=== PATIENT | female | born 1990 | race Caucasian/White ===

== ENCOUNTER 2016-12-01 15:52 | Emergency (ER) | payer OTHER ==
[2016-12-01 16:41] VITALS: BP 144/88
--- NOTE | 2016-12-01 20:58 | UC ---
Swati Kat Erika, scribed for Adwoa Hall DO on 12/01/16 at 1717 . Respiratory Complaint HPI - HPI Summary HPI Summary: Patient is a 26-year-old female presenting to [facility] with a CC of a "raspiness" in her left anterior and left lateral chest for the past few days. She feels the symptoms when breathing. Patient reports she initially had a sore throat a few days ago, but this resolved. Patient states she has a slight dry cough. She denies chest pain and SOB. Patient denies all other symptoms including fever, chills, diaphoresis, headache, sinus congestion, nasal drainage, nausea, vomiting, abdominal pain, urinary symptoms, rashes, myalgias, and arthralgias. Patient denies PMHx. FHx HTN. Patient reports that she has smoked about 8 years out of the past 14 years, at most 1 PPD and usually 10 cigarettes/day. She recently decreased to 2 cigarettes/day and is trying to quit. - History of Current Complaint Chief Complaint: UCRespiratory Stated Complaint: CONGESTION Time Seen by Provider: 12/01/16 17:00 Hx Obtained From: Patient Hx Last Menstrual Period: ON DEPOPROVERA (LMP 09/2016) ?: No Onset/Duration: Gradual Onset, Lasting Days, Still Present Timing: Constant Severity Initially: Mild Severity Currently: Mild Pain Intensity: 0 Pain Scale Used: 0-10 Numeric Aggravating Factors: Deep Breaths Alleviating Factors: Nothing Associated Signs And Symptoms: Negative: Dyspnea, Fever, Chills, Nasal Congestion, Sinus Discomfort - Allergies/Home Medications Allergies/Adverse Reactions: Allergies Allergy/AdvReac Type Severity Reaction Status Date / Time Hydrocodone [From Vicodin] AdvReac Nausea Verified 12/01/16 16:41 PMH/Surg Hx/FS Hx/Imm Hx Previously Healthy: Yes Endocrine History Of: Denies: Diabetes, Thyroid Disease Cardiovascular History Of: Denies: Cardiac Disorders Respiratory History Of: Denies: Asthma - Surgical History Surgical History: None - Family History Known Family History: Positive: Hypertension - Social History Occupation: Employed Full-time Lives: With Family Alcohol Use: Occasionally Substance Use Type: None Smoking Status (MU): Current Every Day Smoker Type: Cigarettes Amount Used/How Often: 2 CIG/DAY Length of Time of Smoking/Using Tobacco: 8 out of the past 14 years Have You Smoked in the Last Year: Yes Cessation Counseling: Counseled 3+Min - 10 Min Review of Systems Constitutional: Negative Skin: Negative Eyes: Negative ENT: Sore Throat - resolved Respiratory: Other - "raspiness" in chest Cardiovascular: Negative Gastrointestinal: Negative Genitourinary: Negative Motor: Negative Neurovascular: Negative Musculoskeletal: Negative Neurological: Negative Psychological: Negative All Other Systems Reviewed And Are Negative: Yes Physical Exam Triage Information Reviewed: Yes Appearance: Well-Appearing, No Pain Distress, Well-Nourished Vital Signs: Initial Vital Signs Temp 97.6 F 12/01/16 16:37 Pulse 73 12/01/16 16:37 Resp 16 12/01/16 16:37 BP 144/88 12/01/16 16:37 Pulse Ox 98 12/01/16 16:37 Vital Signs Reviewed: Yes Eyes: Positive: Conjunctiva Clear. Negative: Discharge ENT: Positive: Hearing grossly normal. Negative: Muffled/hoarse voice Neck: Positive: Supple, Nontender Respiratory: Positive: Lungs clear, Normal breath sounds, No respiratory distress, No accessory muscle use Cardiovascular: Positive: RRR, No Murmur Musculoskeletal Exam: Normal Neurological: Positive: Alert, Muscle Tone Normal Psychological Exam: Normal Psychological: Positive: Age Appropriate Behavior Skin Exam: Other - warm, dry, normal color UC Diagnostic Evaluation - Laboratory O2 Sat by Pulse Oximetry: 98 Respiratory Course/Dx - Differential Dx/Diagnosis Differential Diagnosis/HQI/PQRI: Bronchitis, Lower Resp Infection, Sinusitis, Other - uri, dental infecton Provider Diagnoses: Cough Discharge - Discharge Plan Condition: Stable Disposition: HOME Prescriptions: guaiFENesin ER TAB [Mucinex*] 600 mg PO BID PRN #1 box PRN Reason: Cough Patient Education Materials: Acute Cough (ED) Referrals: Matilde Zavaleta MD [Primary Care Provider] - (FOLLOW UP IN 1-2 WEEKS. FOLLOW UP SOONER IF SYMPTOMS WORSEN OR NEW SYMPTOMS DEVELOP.) The documentation as recorded by the Swati de la cruz Erika accurately reflects the service I personally performed and the decisions made by Isabel freedman Michelle A, DO.
== END 2016-12-01 17:42 | disposition home or self-care (01) ==
LOC: UCEAST 15:52
DX: R05 Cough (principal); F17.210 Nicotine dependence, cigarettes, uncomplicated; Z88.5 Allergy status to narcotic agent
CPT/HCPCS: 99212; G0463

== ENCOUNTER 2023-02-21 10:32 | Inpatient (IN) ==
[2023-02-21] MEDS ORDERED: miSOPROStol 100 mcg TAB PO ONE ×4 (11:11→23:05)
[2023-02-21] MEDS ORDERED: Lactated Ringers 1000 ml BAG 1,000 ML IV ONE (11:11)
[2023-02-21] MEDS ORDERED: Buffered Lidocaine 1% SYRIN 1 ml INTRADERM ONE (11:11)
[2023-02-21] MEDS ORDERED: Nalbuphine 10 MG/ML 1 ML VIAL IV PRN (11:11)
[2023-02-21] MEDS ORDERED: Promethazine INJ(RESTRICTED) 25 MG/ML 1 ml VIAL IV PRN (11:11)
[2023-02-21 11:56] LABS: ABS Lymphocytes 1.2 10^3/uL (1.0-4.8); ABS Monocytes 0.3 10^3/uL (0.0-0.9); ABS Neutrophils 4.3 10^3/uL (1.5-7.6); Eosinophil % 0.6 %; Lymphocyte % 20.5 %; Mean Corpuscular Hemoglobin 28.6 pg (27-33); Mean Corpuscular Hgb Conc 34.3 g/dL (31-36); Mean Corpuscular Volume 83.2 fL (80-97); Mean Platelet Volume 8.7 fL (7.5-11.2); Platelet Count 145 10^3/uL (150-450); Red Blood Count 3.49 10^6/uL (3.63-4.92); Red Cell Distribution Width 15.1 % (12-17); White Blood Count 5.9 10^3/uL (3.8-11.8)
[2023-02-21] MEDS ORDERED: Lactated Ringers 1000 ml BAG 1,000 ML IV SCH (12:00)
[2023-02-21 12:22] LABS: Albumin 3.3 g/dL (3.2-5.2); Albumin/Globulin Ratio 1.5 (1-3); Calcium 8.4 mg/dL (8.6-10.3); Creatinine, Serum 0.47 mg/dL (0.51-0.95); Globulin 2.2 g/dL (2-4); Potassium 3.5 mmol/L (3.5-5.0); Total Bilirubin 0.3 mg/dL (0.2-1.0); Total Protein 5.5 g/dL (6.4-8.9); Uric Acid 4.2 mg/dL (2.3-6.6); eGFR CKD-EPI 127.2 (>60)
[2023-02-21 12:32] LABS: Urine Benzodiazepine Screen None Detected (None Detect); Urine Cannabinoids Screen None Detected (None Detect); Urine Opiates Screen None Detected (None Detect)
[2023-02-21] MEDS ORDERED: Insulin NPH 100 units/ml SUBCUT SCH (21:00)
[2023-02-22] MEDS ORDERED: miSOPROStol 100 mcg TAB PO ONE ×2 (07:42→12:34)
[2023-02-22 14:40] LABS: ABS Eosinophils 0.1 10^3/uL (0.0-0.5); ABS Lymphocytes 1.2 10^3/uL (1.0-4.8); ABS Monocytes 0.5 10^3/uL (0.0-0.9); ABS Neutrophils 5.5 10^3/uL (1.5-7.6); ABS Nucleated RBC 0.01 10^3/ul; Eosinophil % 0.8 %; Hematocrit 32.5 % (35-45); Hemoglobin 11.2 g/dL (11.5-14.3); Lymphocyte % 16.3 %; Mean Corpuscular Hemoglobin 28.2 pg (27-33); Mean Corpuscular Hgb Conc 34.4 g/dL (31-36); Mean Corpuscular Volume 81.9 fL (80-97); Nucleated Red Blood Cells % 0.1 /100 WBC (0.0-0.4); Platelet Count 155 10^3/uL (150-450); Red Blood Count 3.97 10^6/uL (3.63-4.92); Red Cell Distribution Width 15.5 % (12-17); White Blood Count 7.3 10^3/uL (3.8-11.8)
[2023-02-22] MEDS ORDERED: OBEPIDURAL (200 ML) 200 ML EPIDURAL ONE (15:41)
[2023-02-22] MEDS ORDERED: Bupivacaine 0.25% SDV PF 10 ML VIAL INJ ONE (15:48)
[2023-02-22 15:51] LABS: Albumin 3.4 g/dL (3.2-5.2); Albumin/Globulin Ratio 1.3 (1-3); Calcium 9.2 mg/dL (8.6-10.3); Creatinine, Serum 0.5 mg/dL (0.51-0.95); Globulin 2.6 g/dL (2-4); Potassium 3.6 mmol/L (3.5-5.0); Total Bilirubin 0.3 mg/dL (0.2-1.0); eGFR CKD-EPI 125.4 (>60)
[2023-02-22] MEDS ORDERED: Phenylephrine 40 mcg/mL 10mL (400mcg) SYRINGE IV PUSH PRN ×2 (16:19)
[2023-02-22] MEDS ORDERED: Lactated Ringers 1000 ml BAG 1,000 ML IV ONE (16:19)
[2023-02-22] MEDS ORDERED: Lactated Ringers 1000 ml BAG 1,000 ML IV SCH ×2 (17:00→18:00)
[2023-02-22] MEDS ORDERED: OBEPIDURAL (200 ML) 200 ML EPIDURAL SCH (17:00)
[2023-02-22] MEDS ORDERED: Oxytocin in LR 20,000 MILLI.UNIT/1,000 ML BAG IV SCH ×2 (17:15→18:00)
[2023-02-22] MEDS ORDERED: Glycerin ADULT 2.4 gm SUPP PR PRN (17:56)
[2023-02-22] MEDS ORDERED: Witch Hazel PAD JAR TOPICAL PRN (17:56)
[2023-02-22] MEDS ORDERED: Dibucaine 1% OINT 28.35 GM TUBE PR PRN (17:56)
[2023-02-22 18:03] LABS: Urine Appearance Clear; Urine Bilirubin Negative (Negative); Urine Blood Negative (Negative); Urine Color Yellow; Urine Glucose Negative (Negative); Urine Ketones Negative (Negative); Urine Nitrite Negative (Negative); Urine Protein Negative (Negative); Urine Specific Gravity 1.018 (1.002-1.030); Urine Urobilinogen Negative (Negative)
[2023-02-22 18:05] LABS: Urine Bacteria Absent (Absent); Urine Red Blood Cell 1+(3-5/hpf) (Absent); Urine Squamous Epithelial Cell Present (Absent); Urine White Blood Cell Trace(0-5/hpf) (Absent)
[2023-02-23 07:32] LABS: ABS Basophils 0.1 10^3/uL (0.0-0.1); ABS Eosinophils 0.1 10^3/uL (0.0-0.5); ABS Lymphocytes 1.7 10^3/uL (1.0-4.8); ABS Monocytes 0.6 10^3/uL (0.0-0.9); ABS Neutrophils 6.1 10^3/uL (1.5-7.6); Eosinophil % 0.9 %; Hematocrit 33.1 % (35-45); Hemoglobin 11.3 g/dL (11.5-14.3); Lymphocyte % 19.7 %; Mean Corpuscular Hemoglobin 28.5 pg (27-33); Mean Corpuscular Hgb Conc 34.2 g/dL (31-36); Mean Corpuscular Volume 83.4 fL (80-97); Mean Platelet Volume 8.7 fL (7.5-11.2); Platelet Count 146 10^3/uL (150-450); Red Blood Count 3.97 10^6/uL (3.63-4.92); Red Cell Distribution Width 15.4 % (12-17); White Blood Count 8.5 10^3/uL (3.8-11.8)
[2023-02-23] MEDS: Enoxaparin 40 MG/0.4 ML SYR SUBCUT SCH (10:37)
[2023-02-24] MEDS: Enoxaparin 40 MG/0.4 ML SYR SUBCUT SCH (11:19)
[2023-02-24 13:06] VITALS: BP 127/80
== END 2023-02-24 18:00 | disposition home or self-care (01) | DRG 560 ==
LOC: MCHOBOUT 10:32 → MCHOB 11:23
PROVIDERS: ADMIT Obstetrics & Gynecology; ATTEND Obstetrics & Gynecology

== ENCOUNTER 2024-05-23 10:19 | Inpatient (IN) ==
[~2024-05-23 10:19] MED LIST: Lidocaine 1% VIAL 10 MG/ML 30 ML VIAL INJ PRN
[2024-05-23 12:21] LABS: ABS Lymphocytes 1.2 10^3/uL (1.0-4.8); ABS Monocytes 0.5 10^3/uL (0.0-0.9); ABS Neutrophils 4.5 10^3/uL (1.5-7.6); Eosinophil % 0.4 %; Hematocrit 33.2 % (35-45); Hemoglobin 11.1 g/dL (11.5-14.3); Lymphocyte % 19.6 %; Mean Corpuscular Hemoglobin 29.6 pg (27-33); Mean Corpuscular Hgb Conc 33.5 g/dL (31-36); Mean Corpuscular Volume 88.3 fL (80-97); Mean Platelet Volume 8.8 fL (7.5-11.2); Nucleated Red Blood Cells % 0.1 %/100WBC (0.0-0.8); Platelet Count 145 10^3/uL (150-450); Red Blood Count 3.76 10^6/uL (3.63-4.92); Red Cell Distribution Width 24.8 % (12-17); White Blood Count 6.3 10^3/uL (3.8-11.8)
[2024-05-23 12:56] LABS: Urine Benzodiazepine Screen None Detected (None Detect); Urine Cannabinoids Screen None Detected (None Detect); Urine Opiates Screen None Detected (None Detect)
[2024-05-23] MEDS: Lactated Ringers 1000 ml BAG 1,000 ML IV SCH (13:15)
[2024-05-23] MEDS: Lidocaine 2% JELLY 6 ML Topical TOPICAL ONE (13:47)
[2024-05-23] MEDS: miSOPROStol 100 mcg TAB PO ONE (15:03)
[2024-05-23] MEDS: OBEPIDURAL (200 ML) 200 ML EPIDURAL SCH (19:40)
[2024-05-23] MEDS ORDERED: Phenylephrine 40 mcg/mL 10mL (400mcg) SYRINGE IV PUSH PRN ×2 (22:15)
[2024-05-23] MEDS ORDERED: Sodium Citrate/Citric Acid LIQ 15 ML UDC PO PRN (22:15)
[2024-05-23] MEDS: Lactated Ringers 1000 ml BAG 1,000 ML IV ONE (22:20)
[2024-05-23 23:06] LABS: Urine Appearance Clear; Urine Bilirubin Negative (Negative); Urine Blood Negative (Negative); Urine Color Light-Yellow; Urine Glucose Negative (Negative); Urine Ketones Negative (Negative); Urine Nitrite Negative (Negative); Urine Protein Negative (Negative); Urine Specific Gravity 1.017 (1.002-1.030); Urine Urobilinogen Negative (Negative); Urine pH 6.5 (5.0-8.0)
[2024-05-24] MEDS: Oxytocin in LR 20,000 MILLI.UNIT/1,000 ML BAG IV SCH ×2 (00:30→05:23)
[2024-05-24] MEDS ORDERED: Glycerin ADULT 2.4 gm SUPP PR PRN (00:35)
[2024-05-24] MEDS ORDERED: Lactated Ringers 1000 ml BAG 1,000 ML IV SCH (01:00)
[2024-05-24] MEDS: fentaNYL 100 mcg/2 ml 50 MCG/ML VIAL IV SLOW PU ONE (02:20)
[2024-05-24] MEDS: Carboprost Tromethamine 250 mcg 1 ml VIAL IM ONE (02:21)
[2024-05-24] MEDS: ceFAZolin 2 GM PREMIX 2 GM/50 ML BAG ONE (02:30)
[2024-05-24] MEDS ORDERED: Enoxaparin 40 MG/0.4 ML SYR SUBCUT SCH (08:00)
[2024-05-24 08:25] LABS: ABS Monocytes 0.6 10^3/uL (0.0-0.9); ABS Neutrophils 10.3 10^3/uL (1.5-7.6); Eosinophil % 0.1 %; Hematocrit 38.5 % (35-45); Hemoglobin 12.8 g/dL (11.5-14.3); Lymphocyte % 8.3 %; Mean Corpuscular Hemoglobin 29.3 pg (27-33); Mean Corpuscular Hgb Conc 33.2 g/dL (31-36); Mean Corpuscular Volume 88.3 fL (80-97); Mean Platelet Volume 9.1 fL (7.5-11.2); Platelet Count 121 10^3/uL (150-450); Red Blood Count 4.36 10^6/uL (3.63-4.92); Red Cell Distribution Width 24.5 % (12-17)
[2024-05-24] MEDS: Witch Hazel PAD JAR TOPICAL PRN (10:42)
[2024-05-24] MEDS: Dibucaine 1% OINT 28.35 GM TUBE PR PRN (10:42)
[2024-05-24] MEDS: OBEPIDURAL (200 ML) 200 ML EPIDURAL ONE (12:20)
[2024-05-24] MEDS: Lidocaine 1.5% EPI 1:200,000 30 ML SDV ONE (12:20)
[2024-05-24] MEDS: Lactated Ringers 1000 ml BAG 1,000 ML IV SCH (12:21)
[2024-05-24] MEDS: Lactated Ringers 1000 ml BAG 1,000 ML IV ONE (12:21)
[2024-05-24] MEDS: Phenylephrine 40 mcg/mL 10mL (400mcg) SYRINGE ONE (12:21)
[2024-05-24] MEDS: fentaNYL 250 mcg/5 ml 50 MCG/ML 5 ml VIAL (250 MCG) ONE (12:22)
[2024-05-24] MEDS: Methylergonovine 0.2 mg AMPULE 1 ml AMP ONE (12:23)
[2024-05-24] MEDS: ceFAZolin VIAL 2 GM in NS 0.9% 100 ml BAG 100 ML IVPB ONE (12:24)
[2024-05-24] MEDS: Carboprost Tromethamine 250 mcg 1 ml VIAL ONE (12:24)
[2024-05-24] MEDS: Buffered Lidocaine 1% SYRIN 1 ml INTRADERM ONE (13:00)
[2024-05-24] MEDS: Insulin NPH 100 units/ml SUBCUT ONE (13:00)
[2024-05-24] MEDS: Enoxaparin 40 MG/0.4 ML SYR SUBCUT SCH (13:56)
[2024-05-25 09:08] VITALS: BP 123/75
[2024-05-25 09:35] LABS: ABS Basophils 0.1 10^3/uL (0.0-0.1); ABS Eosinophils 0.1 10^3/uL (0.0-0.5); ABS Lymphocytes 1.4 10^3/uL (1.0-4.8); ABS Monocytes 0.6 10^3/uL (0.0-0.9); ABS Neutrophils 5.8 10^3/uL (1.5-7.6); Eosinophil % 0.7 %; Hematocrit 35.1 % (35-45); Hemoglobin 11.8 g/dL (11.5-14.3); Lymphocyte % 17.9 %; Mean Corpuscular Hemoglobin 30.1 pg (27-33); Mean Corpuscular Hgb Conc 33.7 g/dL (31-36); Mean Corpuscular Volume 89.3 fL (80-97); Mean Platelet Volume 8.9 fL (7.5-11.2); Nucleated Red Blood Cells % 0.1 %/100WBC (0.0-0.8); Platelet Count 140 10^3/uL (150-450); Red Blood Count 3.93 10^6/uL (3.63-4.92); Red Cell Distribution Width 24.4 % (12-17); White Blood Count 7.9 10^3/uL (3.8-11.8)
== END 2024-05-25 13:25 | disposition home or self-care (01) | DRG 560 ==
LOC: MCHOBOUT 10:19 → MCHOB 11:03
PROVIDERS: ADMIT Obstetrics & Gynecology; ATTEND Obstetrics & Gynecology